=== PATIENT | female | born 1960 | race Caucasian/White ===

== ENCOUNTER 2016-12-25 11:27 | Inpatient (IN) | payer OTHER ==
[2016-12-25] MEDS ORDERED: MORPHINE SULFATE INJ 10 MG/ML VIAL IV ONE ×2 (11:47→14:09)
[2016-12-25] MEDS ORDERED: PROMETHAZINE HCL INJ 25 MG in SODIUM CHLORIDE 0.9% 50ML 50 ML IVPB ONE (11:47)
[2016-12-25] MEDS ORDERED: SODIUM CHLORIDE 0.9% 1000ML 1,000 ML IVS ONE ×2 (11:47→18:20)
[2016-12-25] MEDS ORDERED: PROMETHAZINE HCL INJ 25 MG/ML VIAL ONE (11:51)
[2016-12-25] MEDS ORDERED: SODIUM CHLORIDE 0.9% 50ML 50 ML ONE (11:52)
--- NOTE | 2016-12-25 12:30 | RAD ---
EXAM DESCRIPTION: Abdomen Series CLINICAL HISTORY: abd pain, n/v hx pancreatitis, 2 hrs COMPARISON: None. FINDINGS: AP supine and upright views of the abdomen show a nonspecific, nonobstructive bowel gas pattern with no evidence for free intraperitoneal air. Surgical clips from cholecystectomy are seen. No air-filled dilated loops of small bowel are seen. No significant air-fluid levels are identified. No obvious organomegaly is seen. No abnormal calcifications are seen in the expected location of the renal collecting systems. Single view of the chest shows cardiac silhouette and pulmonary vasculature to be within normal limits. Lungs are normally aerated and clear. Left hip arthroplasty changes are seen. IMPRESSION: Nonspecific abdominal series Electronically signed by: Tariq Soria MD 12/25/2016 12:29 PM CDT
[2016-12-25] MEDS ORDERED: ONDANSETRON ODT 8 MG TAB SL ONE (14:09)
[2016-12-25] MEDS ORDERED: ALUMINUM & MAGNESIUM HYDROXIDE 30 ML UD PO ONE (14:09)
--- NOTE | 2016-12-25 14:16 | ED.PDOC ---
History of Present Illness - General Chief Complaint: Abdominal Pain Stated Complaint: abdominal pain Time Seen by Provider: 12/25/16 11:34 Information Source: patient, family Exam Limitations: no limitations - History of Present Illness Initial Comments: The patient is a 56-year-old male presenting to the emergency room secondary to fairly abrupt onset abdominal pain with concurrent nausea and vomiting this morning approximately 3 hours prior to arrival. Patient reports the pain and nausea are just like her previous episodes of pancreatitis. She thinks she's had around 4 episodes in the past. She did drink heavily and smoke heavily in the past. She reports that she is doing neither now. No history of hypertriglyceridemia or calcium problems that she knows of. No fevers. No diarrhea. She was feeling fine before the onset. The patient is vomiting and an obvious pain upon my initial exam. No trauma recently. No syncope or near-syncope. No recent dietary changes or medication changes according to her.she does also apparently have a very significant history of gastritis and reflux issues. Abdominal Pain Onset Location: epigastric, periumbilical Pain Radiation: no radiation Quality: burning, cramping, waxing/waning Review of Systems - Review of Systems Constitutional: States: malaise EENTM: States: no symptoms reported Respiratory: States: no symptoms reported Cardiology: States: no symptoms reported Gastrointestinal/Abdominal: States: abdominal pain, nausea, vomiting. Denies: constipation, diarrhea Genitourinary: States: no symptoms reported Musculoskeletal: States: no symptoms reported Skin: States: no symptoms reported Neurological: States: anxiety Endocrine: States: no symptoms reported All other Systems: No Change from Baseline Past Medical History (General) - Patient Medical History Hx Seizures: No Hx Stroke: No Hx Dementia: No Hx Asthma: Yes Hx of COPD: Yes Hx Cardiac Disorders: Yes Hx Congestive Heart Failure: No Hx Pacemaker: No Hx Hypertension: Yes Hx Thyroid Disease: No Hx Diabetes: No Hx Gastroesophageal Reflux: No Hx Renal Disease: No Hx Cancer: No Hx of HIV: No Hx Hepatitis C: No Hx MRSA: No Surgical History: appendectomy, cholecystectomy, Hysterectomy, other - Vaccination History Hx Tetanus, Diphtheria Vaccination: No Hx Influenza Vaccination: Yes Hx Pneumococcal Vaccination: Yes - Social History Hx Tobacco Use: No Hx Chewing Tobacco Use: No Hx Alcohol Use: No Hx Substance Use: No Hx Substance Use Treatment: No Hx Depression: No Hx Physical Abuse: No Hx Emotional Abuse: No Hx Suspected Abuse: No - Activities of Daily Living Hospice Agency (if applicable):: None - Female History Patient is a Female of Child Bearing Age (10 -59 yrs old): No Patient : No Family Medical History - Family History Mother Family History: Unknown Living Status: Hx Family Hypertension: Yes Hx Cardiac Disease: Yes - [place] Hx Family Cancer: Yes - brain, lung Physical Exam - Physical Exam General Appearance: Alert, Obvious distress Eyes, Ears, Nose, Throat Exam: PERRL/EOMI, normal ENT inspection Neck: non-tender, full range of motion Respiratory: chest non-tender, lungs clear, normal breath sounds, no respiratory distress, no accessory muscle use Cardiovascular/Chest: normal peripheral pulses, regular rate, rhythm, no edema Peripheral Pulses: 2+ Gastrointestinal/Abdominal: soft, other - [id number] epigastric and periumbilical discomfort palpation. No definite rebound at this point. No definite palpable masses. 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 Given the patient's reported history of recurrent pancreatitis, the symptoms do appear to be consistent with that diagnosis at this time. The patient has really seemed a liter of IV fluids as well as some nausea and pain medications. She does appear to respond to these fairly well however once the medications wear off the symptoms do recur. The patient is being made nothing by mouth with the exception of ice chips. The patient has a normal amylase and lipase at this point in time however symptoms only started a few hours ago. admit for continuation of symptom control and further workup as deemed necessary by response to treatment. - Results/Orders Results/Orders: Laboratory Tests 12/25/16 12/25/16 12/25/16 11:40 11:40 11:40 WBC 7.2 RBC 4.71 Hgb 13.6 Hct 41.0 MCV 87.1 MCH 28.8 MCHC 33.1 RDW 13.2 Plt Count 227 MPV 8.7 Absolute Neuts (auto) 3.50 Absolute Lymphs (auto) 2.80 Absolute Monos (auto) 0.70 Absolute Eos (auto) 0.10 Absolute Basos (auto) 0.10 Neutrophils % 48.9 Lymphocytes % 38.3 Monocytes % 9.7 H Eosinophils % 1.6 Basophils % 1.5 PT 10.2 INR 0.900 PTT (SP) 25.4 Sodium 138 Potassium 3.4 L Chloride 107 Carbon Dioxide 23 Anion Gap 11.4 L BUN 17 Creatinine 0.83 BUN/Creatinine Ratio 20.5 H Random Glucose 118 H Serum Osmolality 278.3 Calcium 8.5 Magnesium 2.1 Total Bilirubin 0.6 AST 47 H ALT 30 Alkaline Phosphatase 64 Creatine Kinase 92 CK-MB (CK-2) 1.4 CK-MB (CK-2) % Not Reportable Troponin I < 0.02 B-Natriuretic Peptide 64.5 Serum Total Protein 7.3 Albumin 4.2 Globulin 3.1 Albumin/Globulin Ratio 1.4 Amylase 62 Lipase 30 Urine Color Urine Appearance Urine pH Ur Specific [place] Urine Protein Urine Glucose (UA) Urine Ketones Urine Blood Urine Nitrite Urine Bilirubin Urine Urobilinogen Ur Leukocyte Esterase Urine RBC Urine WBC Ur Epithelial Cells Urine Bacteria 12/25/16 13:50 WBC RBC Hgb Hct MCV MCH MCHC RDW Plt Count MPV Absolute Neuts (auto) Absolute Lymphs (auto) Absolute Monos (auto) Absolute Eos (auto) Absolute Basos (auto) Neutrophils % Lymphocytes % Monocytes % Eosinophils % Basophils % PT INR PTT (SP) Sodium Potassium Chloride Carbon Dioxide Anion Gap BUN Creatinine BUN/Creatinine Ratio Random Glucose Serum Osmolality Calcium Magnesium Total Bilirubin AST ALT Alkaline Phosphatase Creatine Kinase CK-MB (CK-2) CK-MB (CK-2) % Troponin I B-Natriuretic Peptide Serum Total Protein Albumin Globulin Albumin/Globulin Ratio Amylase Lipase Urine Color Yellow Urine Appearance Clear Urine pH 7.0 Ur Specific [place] 1.020 Urine Protein Negative Urine Glucose (UA) Negative Urine Ketones Negative Urine Blood Small H Urine Nitrite Negative Urine Bilirubin Negative Urine Urobilinogen 0.2 Ur Leukocyte Esterase Negative Urine RBC 3-5 H Urine WBC 0 Ur Epithelial Cells 0 Urine Bacteria 0 acute abdominal series shows no evidence of new definitive pathology. No free air. No evidence of obstruction. 

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
[2016-12-25] MEDS ORDERED: MORPHINE SULFATE INJ 10 MG/ML VIAL IV PRN (15:51)
[2016-12-25] MEDS ORDERED: SODIUM CHLORIDE 0.9% (FLUSH) 10 ML SYG IV PRN (15:51)
[2016-12-25] MEDS ORDERED: ONDANSETRON INJ 4 MG/2 ML VIAL IV PRN (15:51)
[2016-12-25] MEDS ORDERED: PANTOPRAZOLE INJECTION 40 MG in SODIUM CHLORIDE 0.9% 100ML 100 ML IVPB ONE (15:58)
[2016-12-25] MEDS ORDERED: IV SET AND CAP CHANGE INJ INJ SCH (16:00)
--- NOTE | 2016-12-25 16:57 | CT ---
PROCEDURE: Abdomen/Pelvis w/Contrast HISTORY: Acute abdominal pain Indication: Same as above Comparison: None . Technique: CT of the abdomen and pelvis was done with intravenous contrast. Images were obtained from the lung base to the level of the pubic symphysis in axial plane, followed by orthogonal sagittal and coronal reconstruction. Oral contrast was not given for the study. The patient was injected with contrast intravenously, without any documented immediate adverse reactions. This exam was performed according to our departmental dose-optimization program, which includes automated exposure control, adjustment of the mA and/or KV according to the patient's size and/or use of iterative reconstruction technique. FINDINGS: Images through the lung bases do not show any focal infiltrates or pleural effusions. The liver, pancreas, spleen and the bilateral adrenal glands appear unremarkable. The gallbladder is surgically absent. Postcholecystectomy prominence of the common duct and the intrahepatic biliary tree is noted The bilateral kidneys enhance with contrast in a normal fashion. The urinary bladder is unremarkable . The bilateral ureters and the bilateral periureteral soft tissues and fat planes are unremarkable. The small bowel appears unremarkable, without any evidence of small bowel obstruction or bowel wall thickening. There is no CT evidence of pericecal inflammatory change or ileocecal mesenteric adenitis. The appendix is not visualized The ileocecal junction appears unremarkable. There is mild diffuse thickening of the wall of the entire large bowel, which may be due to underlying diffuse colitis due to infectious or inflammatory etiology. There is no large bowel obstruction The splenic and portal veins are of normal caliber, without any filling defects. There is no pathological lymphadenopathy in the retroperitoneum or in the pelvic region. There is no evidence of free fluid or free air in the abdomen or the pelvic region. There is no clinically significant abdominal aortic aneurysm. There is no clinically significant inguinal or ventral hernia. The visualized lumbar spine shows mild degenerative change. There is ORIF in the left proximal femur and left hip joint . The paravertebral soft tissues are unremarkable. The remainder of the pelvic structures are unremarkable. IMPRESSION: There is mild diffuse thickening of the wall of the entire large bowel, which may be due to underlying diffuse colitis due to infectious or inflammatory etiology. There is no large bowel obstruction. Location of Interpretation: Teleradiology Electronically signed by: Bernardo Maria MD 12/25/2016 4:56 PM CDT Workstation: [id number]
[2016-12-25] MEDS ORDERED: SODIUM CHLORIDE 0.9% 1000ML 1,000 ML ONE (17:04)
--- NOTE | 2016-12-25 17:19 | RAD ---
EXAM DESCRIPTION: Chest,2 Views CLINICAL HISTORY: 56 years Female, LUQ pain COMPARISON: 29 May 2015 TECHNIQUE: PA/lateral FINDINGS: The chest is hyperexpanded. No focal infiltrate is seen. The heart is within range of normal. No pleural fluid is seen. Surgical clips are seen in the right upper quadrant. IMPRESSION: Hyperexpansion the chest is observed. I see no acute cardiopulmonary pathology. Electronically signed by: Archie Thompson MD 12/25/2016 5:18 PM CDT
[2016-12-25] MEDS ORDERED: PANTOPRAZOLE SODIUM IV 40 MG VIAL ONE (18:22)
[2016-12-25] MEDS ORDERED: metroNIDAZOLE IV PREMIX 500MG 100 ML IVPB ONE (18:22)
[2016-12-25] MEDS ORDERED: SODIUM CHLORIDE 0.9% 100ML 100 ML IVPB ONE (18:37)
[2016-12-25] MEDS: metroNIDAZOLE IV PREMIX 500MG 500 MG in PREMIX BAG 1 BAG IVPB SCH (19:04)
[2016-12-25] MEDS: KCL 20MEQ/0.45% NS 1,000 ML IVS PRN (20:01)
[2016-12-25] MEDS ORDERED: SODIUM CHLORIDE 0.9% (FLUSH) 10 ML SYG IV SCH (21:00)
[2016-12-26] MEDS ORDERED: metroNIDAZOLE IV PREMIX 500MG 100 ML IVPB ONE ×3 (01:09→17:53)
[2016-12-26] MEDS: metroNIDAZOLE IV PREMIX 500MG 500 MG in PREMIX BAG 1 BAG IVPB SCH ×3 (02:08→18:14)
[2016-12-26] MEDS: amLODIPine BESYLATE 5 MG TAB PO SCH (09:03)
[2016-12-26] MEDS: KCL 20MEQ/0.45% NS 1,000 ML IVS PRN ×2 (13:18→23:51)
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
[2016-12-27] MEDS ORDERED: metroNIDAZOLE IV PREMIX 500MG 100 ML IVPB ONE ×2 (02:48→07:45)
[2016-12-27] MEDS: metroNIDAZOLE IV PREMIX 500MG 500 MG in PREMIX BAG 1 BAG IVPB SCH ×2 (02:49→10:09)
[2016-12-27 08:08] VITALS: O2SAT 98
[2016-12-27] MEDS: amLODIPine BESYLATE 5 MG TAB PO SCH (09:06)
[2016-12-27 09:53] VITALS: BP 156/85; TEMP 97
[2016-12-27] MEDS ORDERED: ASPIRIN/ACETAMINOPHEN/CAFFEINE 1 EA TAB PO PRN (10:07)
[2016-12-27] MEDS ORDERED: ASPIRIN/ACETAMINOPHEN/CAFFEINE 1 EA TAB PO ONE (10:07)
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
== END 2016-12-27 15:15 | disposition home or self-care (01) | DRG 439 ==
LOC: ER 11:27 → MS 15:15
PROVIDERS: ADMIT Nurse Practitioner Family; ATTEND Emergency Medicine
PROC: BW21YZZ Computerized Tomography (CT Scan) of Abdomen and Pelvis using Other Contrast (ICD-10-PCS; principal; 2016-12-25)
DX: K85.90 Acute pancreatitis without necrosis or infection, unspecified (principal); A09 Infectious gastroenteritis and colitis, unspecified; R07.9 Chest pain, unspecified; R31.29 Other microscopic hematuria; E87.6 Hypokalemia; G89.29 Other chronic pain; K21.9 Gastro-esophageal reflux disease without esophagitis; M25.559 Pain in unspecified hip; I10 Essential (primary) hypertension; J44.9 Chronic obstructive pulmonary disease, unspecified; F17.210 Nicotine dependence, cigarettes, uncomplicated; Z96.642 Presence of left artificial hip joint; Z98.890 Other specified postprocedural states; Z87.828 Personal history of other (healed) physical injury and trauma; Z79.899 Other long term (current) drug therapy

== ENCOUNTER → 2017-01-21 | Outpatient (CLI) | payer OTHER | END | disposition home or self-care (01) | LOC: LAB.O 13:58 | PROVIDERS: ATTEND Nurse Practitioner Family | DX: K85.90 Acute pancreatitis without necrosis or infection, unspecified (principal) ==

== ENCOUNTER → 2017-02-06 | Outpatient (CLI) | payer OTHER ==
--- NOTE | 2017-02-06 17:13 | RAD ---
EXAM DESCRIPTION: Knee,Left Complete CLINICAL HISTORY: 56 years, Female, KNEE PAIN COMPARISON: None TECHNIQUE: Four views of the left knee FINDINGS: Bony structure of the knee is normally aligned with very little degenerative change but at least mild osteoporosis. No joint effusion or fracture or dislocation is seen. IMPRESSION: 1. Mild osteopenia, otherwise negative left knee. Electronically signed by: Messi Love MD 02/06/2017 5:11 PM CDT
--- NOTE | 2017-02-06 17:14 | RAD ---
EXAM DESCRIPTION: Pelvis CLINICAL HISTORY: 56 years Female, HIP PAIN COMPARISON: June 02, 2014 FINDINGS: A left total hip replacement that has been revised since 2013 examination is noted. The bones are modestly osteopenic. No fracture or deformity or other abnormalities are noted. The pubic and ischial rami are intact. IMPRESSION: Prior left hip replacement and revision. Otherwise negative pelvis with modest osteopenia Electronically signed by: Messi Love MD 02/06/2017 5:13 PM CDT
== END | disposition home or self-care (01) ==
LOC: RAD 07:45
PROVIDERS: ATTEND Orthopaedic Surgery
DX: M25.552 Pain in left hip (principal); M25.562 Pain in left knee

== ENCOUNTER 2018-02-22 10:32 | Emergency (ER) | payer BC, OTHER ==
[2018-02-22 10:49] VITALS: TEMP 97.5
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
[2018-02-22] MEDS ORDERED: SODIUM CHLORIDE 0.9% 500ML 500 ML IVS ONE (11:12)
[2018-02-22] MEDS ORDERED: KETOROLAC TROMETHAMINE INJ 30 MG/ML VIAL IV ONE (11:12)
[2018-02-22] MEDS ORDERED: ORPHENADRINE CITRATE 30 MG/ML AMP IV ONE (11:12)
[2018-02-22] MEDS ORDERED: HYDROcodone 10MG/APAP 325MG 1 EA TAB PO ONE (11:12)
--- NOTE | 2018-02-22 12:18 | RAD ---
EXAM: Lumbar Spine 3 Views CLINICAL INDICATION: 57-year-old female with pain. TECHNIQUE: Three views of the lumbar spine were obtained in AP, lateral, and spot projections. COMPARISON: None. FINDINGS: The lower lumbar spine vertebrae, L4 and L5 vertebral levels are not well visualized secondary to patient positioning. Alignment of the lumbar spine is within normal limits. There is no subluxation or fracture deformity. Morphology of the vertebral bodies and intervertebral disc spaces is compatible with mild multilevel degenerative change with small ventral vertebral body osteophytes. The remainder of the visualized bones are within normal limits. Total hip arthroplasty device on the LEFT incompletely visualized. IMPRESSION: No acute radiographic abnormality. If the patient's symptoms persist, further evaluation with MRI is recommended. Electronically signed by: Eryn Wiseman MD 02/22/2018 12:17 PM CDT
--- NOTE | 2018-02-22 14:01 | CT ---
CT abdomen and pelvis without contrast on 02/22/2018 CLINICAL INDICATION: Hematuria, left-sided back pain TECHNIQUE: Multiple axial images are obtained throughout the abdomen and pelvis without the administration of contrast. This exam was performed according to our departmental dose-optimization program, which includes automated exposure control, adjustment of the mA and/or kV according to patient size and/or use of iterative reconstruction technique. Total DLP is 283.08 mGy*cm. COMPARISON: 12/25/2016 FINDINGS: Abdomen: Mild emphysematous changes are noted in the lung bases. The lung bases are otherwise clear. The patient is status post cholecystectomy. There are couple of likely tiny hyperdense left renal cysts, the largest of these off the upper pole of the left kidney appears stable dating back to an exam from 05/28/2015. There are no renal or ureteral stones and no hydronephrosis. No definite cause of hematuria is noted. The unenhanced solid abdominal organs are otherwise unremarkable. Mild vascular calcifications are noted. There is no abdominal adenopathy. There is no free fluid or free air within the abdomen. The abdominal portion of the GI tract is unremarkable. Pelvis: There is no free fluid in the pelvis. The patient is status post a left total hip arthroplasty which produces artifact limiting some of the evaluation of the pelvis. The patient is status post hysterectomy. There is no pelvic adenopathy. The appendix is not visualized but no pericecal inflammatory changes are noted. Elbow portion of the GI tract is unremarkable. Degenerative changes are noted in the spine. IMPRESSION: No acute abnormality. Electronically signed by: Shiva Barragan 02/22/2018 2:00 PM CDT
[2018-02-22 14:21] VITALS: BP 148/81; O2SAT 97
== END 2018-02-22 14:24 | disposition home or self-care (01) ==
LOC: ER 10:32
DX: M54.5 Low back pain (principal); R31.29 Other microscopic hematuria; R11.2 Nausea with vomiting, unspecified; I51.9 Heart disease, unspecified; I10 Essential (primary) hypertension; K21.9 Gastro-esophageal reflux disease without esophagitis; Z87.19 Personal history of other diseases of the digestive system; Z90.49 Acquired absence of other specified parts of digestive tract; Z79.82 Long term (current) use of aspirin; Z79.899 Other long term (current) drug therapy; Z72.0 Tobacco use
CPT/HCPCS: 36415; 72100; 74176; 80048; 80076; 81001; 82550; 82553; 83605; 84484; 85025; 85610; 85651; 85730; J1885; J2360; J7040

== ENCOUNTER → 2019-01-07 | Outpatient (CLI) | payer BC ==
--- NOTE | 2019-01-08 08:31 | CT ---
EXAM DESCRIPTION: Lung Screen Low Dose CLINICAL HISTORY: 58 years Female, Tobacco use COMPARISON: CT abdomen and pelvis 02/22/2018. CT chest 08/15/2017. TECHNIQUE: CT images through the chest without IV contrast. Multiplanar reformations were provided. This exam was performed according to our departmental dose-optimization program, which includes automated exposure control, adjustment of the mA and/or kV according to patient size and/or use of iterative reconstruction technique. CT CHEST FINDINGS: Heart and mediastinum: Heart is normal size. Minimal pericardial effusion anteriorly. Esophagus is unremarkable. Mild aortic atherosclerosis. No mediastinal adenopathy. Evaluation for hilar lymphadenopathy limited without intravenous contrast. Thyroid Gland: Normal. Lungs: Biapical pleural thickening and mild right greater than left apical fibrosis. Moderate emphysematous changes. Unchanged 5 mm ovoid solid nodule along the right major fissure likely representing an intrafissural lymph node. Unchanged 4 mm solid ovoid nodule in the posterior right lower lobe along the right hemidiaphragm. Unchanged millimetric pleural adjacent solid pulmonary nodules in the posterior lateral left lower lobe. Unchanged pleural adjacent curvilinear density measuring 5 mm in the lateral left lower lobe which may represent focal scarring or atelectasis. No new pulmonary nodule. Airways: No filling defects or bronchiectasis. Pleura: No effusion or pneumothorax. Subphrenic Structures: The gallbladder surgically absent. There is a stable 12 mm hyperdense round lesion extending off the superior pole of the left kidney with average Hounsfield unit of 87. Upper abdominal aortic atherosclerosis Musculoskeletal and Soft Tissues: Within normal limits for age. IMPRESSION: 1. No acute abnormality of the chest. 2. Emphysema. 3. Stable pulmonary nodules as above, unchanged from 08/15/2015. Recommend follow-up per the lung RADS guidelines below. 4. Unchanged likely proteinaceous or hemorrhagic left renal cyst. Category 2 - Nodules with a very low likelihood (less than 1%) of becoming a clinically active cancer due to size or lack of growth. Nodules: Solid or part solid nodule(s) less than 6mm, new solid nodule less than 4mm. Ground glass nodule(s) less than 20mm or unchanged or slow growing ground glass nodule 20mm or greater. Cat 3 or 4 nodule unchanged for 3 or more months. Follow-up: Continue annual screening with a Low Dose Chest CT in 12 months for re-evaluation. Electronically signed by: Bk Hatfield MD 01/08/2019 8:28 AM CDT
== END ==
LOC: CT 15:28
PROVIDERS: ATTEND General Practice
DX: Z87.891 Personal history of nicotine dependence (principal); J43.9 Emphysema, unspecified; R91.8 Other nonspecific abnormal finding of lung field; N28.1 Cyst of kidney, acquired; Z72.0 Tobacco use

== ENCOUNTER → 2019-02-15 | Outpatient (CLI) | payer BC ==
--- NOTE | 2019-02-15 20:27 | MAM ---
EXAM DESCRIPTION: 3D Screening BILATERAL : Digital Mammography. CLINICAL HISTORY: 58 years Female SCREEN . No complaints and no personal history of breast cancer. Mother with breast cancer. Childbirth. Postmenopausal 25+ years. No HRT. Bilateral benign breast biopsies. Lifetime risk of developing breast cancer (Tyrer-Cuzick model)(%): 20.5. COMPARISON: Baseline study at this facility.. No prior reports available. TECHNIQUE: Bilateral CC and MLO projection full-field images, digital tomosynthesis mammographic technique. Bilateral digital 2-D full-field MLO images. CAD not available for tomosynthesis or 2-D images. FINDINGS: The breast parenchymal density pattern is: Heterogeneously dense breast tissue, which may obscure small masses. No skin thickening or nipple retraction. Focal asymmetry in the middle third of the right breast at the 9:00 position approximately 5 cm from the nipple. 2 small groups of calcifications in the middle third and anterior third of the breast. Bilateral solitary microcalcifications. No new focal, stellate mass or density, focal asymmetry , and no suspicious microcalcifications left breast. IMPRESSION: BI-RADS CATEGORY: 0 - INCOMPLETE- Need additional imaging evaluation. FOLLOW-UP: Recall for additional imaging: Right breast LM full-field tomosynthesis. Right breast CC spot compression tomosynthesis. Right breast LM/CC spot magnification. Targeted right breast ultrasound.. Written communication concerning the IMPRESSION and Follow-up, will be mailed to the patient and referring health care provider. Electronically signed by: Shashi Day MD 02/15/2019 8:25 PM CDT
== END ==
LOC: MAMMO 10:00
PROVIDERS: ATTEND General Practice
DX: Z12.31 Encounter for screening mammogram for malignant neoplasm of breast (principal)

== ENCOUNTER 2019-04-08 11:38 | Emergency (ER) | payer BC ==
[2019-04-08] MEDS ORDERED: ONDANSETRON INJ 4 MG/2 ML VIAL IV ONE (11:51)
[2019-04-08] MEDS ORDERED: MORPHINE SULFATE INJ 10 MG/ML VIAL IV ONE (11:51)
[2019-04-08 11:52] VITALS: TEMP 99.2
--- NOTE | 2019-04-08 11:56 | ED.PDOC ---
History of Present Illness - General Chief Complaint: GI Problem Stated Complaint: left hip pain Time Seen by Provider: 04/08/19 11:50 - History of Present Illness Initial Comments: this is a 58 year female, smoker, patient present with left hip pain since yesterday, patient was at work when she started having pain, on her left hip and then migrating towards her abdomen, no trauma, today the pain was unbearable, no nausea no vomiting and no diarrhea. when i started the evaluation it was clear to me that the pain was not in the hip but that it was actually on the abdomen, that her hips hurt wheh she walk but the pain actually starts on her abdomen patient has had multiple surgeries incluiding hysterectomy, gall bladder resection and appendectomy. patient pain in her abdomen is worse when she moves Review of Systems - Review of Systems Constitutional: Denies: chills, diaphoresis, fever, malaise, weakness EENTM: Denies: eye pain, blurred vision, tearing, double vision, ear pain, ear discharge, nose pain, nose congestion, throat pain, throat swelling, mouth pain Respiratory: Denies: cough, orthopnea, short of breath, stridor Cardiology: Denies: chest pain, edema, palpitations, syncope Gastrointestinal/Abdominal: States: abdominal pain. Denies: constipation, diarrhea, nausea, vomiting Genitourinary: Denies: discharge, dysuria, frequency, hematuria, pain Musculoskeletal: Denies: back pain, gout, joint pain, joint swelling, muscle pain, muscle stiffness, neck pain Skin: Denies: change in color, change in hair/nails, dryness, lesions, lumps, rash Neurological: Denies: anxiety, depressed, emotional problems, headache, numbness, paresthesia, pre-existing deficit, seizure, tingling, tremors, weakness Endocrine: Denies: excessive sweating, flushing, intolerance to cold, intolerance to heat, increased hunger, increased thirst, increased urine, unexplained weight gain, unexplained weight loss Hematologic/Lymphatic: Denies: anemia, blood clots, easy bleeding, easy bruising, swollen glands All other Systems: Reviewed and Negative Past Medical History (General) - Patient Medical History Hx Seizures: No Hx Stroke: No Hx Dementia: No Hx Asthma: No Hx of COPD: No Hx Cardiac Disorders: Yes Hx Congestive Heart Failure: No Hx Pacemaker: No Hx Hypertension: Yes Hx Thyroid Disease: No Hx Diabetes: No Hx Gastroesophageal Reflux: Yes Hx Renal Disease: No Hx Cancer: No Hx of HIV: No Hx Hepatitis C: No Hx MRSA: No Surgical History: appendectomy, cholecystectomy, Hysterectomy - Vaccination History Hx Tetanus, Diphtheria Vaccination: No Hx Influenza Vaccination: Yes Hx Pneumococcal Vaccination: Yes - Social History Hx Tobacco Use: Yes - occasionally Hx Chewing Tobacco Use: No Hx Alcohol Use: No Hx Substance Use: No Hx Substance Use Treatment: No Hx Depression: No Hx Physical Abuse: No Hx Emotional Abuse: No Hx Suspected Abuse: No - Female History Patient : No Family Medical History - Family History Mother Family History: Unknown Living Status: Hx Family Asthma: Yes - sister Hx Family Hypertension: Yes Hx Cardiac Disease: Yes - [place] Hx Family Cancer: Yes - brain, lung Hx Family;Other: Hemophilia -brother Physical Exam - Physical Exam General Appearance: Alert, Well Developed, Well Groomed, Well Hydrated Eyes, Ears, Nose, Throat Exam: PERRL/EOMI, normal ENT inspection Neck: non-tender, full range of motion, supple Respiratory: chest non-tender, lungs clear, normal breath sounds, no respiratory distress Cardiovascular/Chest: normal peripheral pulses, regular rate, rhythm, no edema, no gallop Gastrointestinal/Abdominal: other - diffuse abdominal tenderness, no actue adomen Extremity: normal range of motion, non-tender, normal inspection, no pedal edema, no calf tenderness, normal capillary refill, other - i was able to move all her extremities and no pain, no redness and no swelling noted Progress - Progress Progress: 04/08/19 14:12 this is a patient that initially presented with left hip pain but on initial evaluation pain was mostly in her abdomen, patient did mention that she has had multiple abdominal surgeries and had a very hard stool this morning. im going to get a ct and cbc, cmp, lipase and urines im concer for small bowel obstruction but also im worried about perforation since patient pain since to be worse with movement patient labs were essentially negative and ct did show constipation but acute findings patient will be discharge home with bentyl, tramadol (possible hip bursitis) and patient has dulcolax at home and instructed her to add more fiber and liquid to diet return to the er if fever,chills, nausea, vomiting, diarrhea, unable to hold any fluids down, bloody stool severe back pain, sever abdominal pain, unwanted weight loss, painful urination and/or bloody urine Departure - Departure Clinical Impression: Abdominal pain Qualifiers: Abdominal location: generalized Qualified Code(s): R10.84 - Generalized abdominal pain Constipation Qualifiers: Constipation type: other constipation type Qualified Code(s): K59.09 - Other constipation Disposition: Discharge to Home or Self Care Condition: Fair Departure Forms: ED Discharge - Pt. Copy, Patient Portal Self Enrollment Instructions: DI for Abdominal Pain-Adult, DI for Constipation Referrals: Darwin Grier MD [Primary Care Provider] - 1-2 Weeks Prescriptions: Dicyclomine HCl [Bentyl] 20 mg PO Q6HRS 6 Days #24 tab traMADol 37.5MG/APAP 325MG [Ultracet] 50 mg PO .Q4H 4 Days #24 tab Home Medications: Ambulatory Orders Pantoprazole Tablet [Protonix] 40 mg PO PRN 12/25/16 Aspirin-Caffeine [Diane [employer] Body 500-32.5 mg] 1 tab PO Q6HR PRN 02/22/18 Dicyclomine HCl [Bentyl] 20 mg PO Q6HRS 6 Days #24 tab 04/08/19 traMADol 37.5MG/APAP 325MG [Ultracet] 50 mg PO .Q4H 4 Days #24 tab 04/08/19 Additional Instructions: return to the er if fever,chills, nausea, vomiting, diarrhea, unable to hold any fluids down, bloody stool severe back pain, sever abdominal pain, unwanted weight loss, painful urination and/or bloody urine
--- NOTE | 2019-04-08 13:23 | CT ---
EXAM DESCRIPTION: Abdomen/Pelvis w/Contrast CLINICAL HISTORY: 58 years Female, diffuse abdominal pain COMPARISON: CT abdomen and pelvis dated 02/22/2018. TECHNIQUE: Contiguous 3 mm axial images were obtained from the lung bases to the level of the proximal femora after the administration of intravenous and oral contrast. Sagittal and coronal reconstructions were reviewed. FINDINGS: THORAX: 4 mm pleural-based nodule is noted along the right major fissure. The imaged lower thorax otherwise appears normal. LIVER: Diffuse intrahepatic and extrahepatic biliary ductal dilatation is felt to be secondary to cholecystectomy. No focal masses are identified. GALLBLADDER: Absent. PANCREAS: Appears normal with no cystic or solid lesions. SPLEEN: Normal ADRENAL GLANDS: Normal with no nodules or masses. KIDNEYS: Both kidneys enhance symmetrically with no hydronephrosis or nephrolithiasis or perinephric fluid collections. No focal masses are identified. The visualized ureters appear grossly unremarkable. STOMACH: The stomach is not well-distended limiting detailed evaluation. SMALL BOWEL: The small bowel loops demonstrate variable degrees of distention with no abnormal dilatation or other signs to suggest bowel obstruction. LARGE BOWEL: Moderate to large amount of fecal material is noted throughout the colon, consistent with constipation. Few diverticuli are identified. The descending colon is not well-distended limiting evaluation. The appendix is not definitively visualized. No evidence of free intraperitoneal air or fluid. RETROPERITONEUM: The abdominal aorta is nonaneurysmal with mild atherosclerosis. The inferior vena cava is normal in size and caliber. No abnormally enlarged retroperitoneal lymph nodes are identified. URINARY BLADDER: Not well distended limiting evaluation. The uterus and ovaries are not visualized and are probably surgically absent. ADDITIONAL FINDINGS: None. BONES: Mild degenerative changes are identified in the visualized bones. Intact left total hip arthroplasty. IMPRESSION: 1. Colonic diverticulosis. Constipation. 2. No acute intra-abdominal or intrapelvic process. 3. 4 mm pleural-based nodule is again noted along the right major fissure. Attention to this nodule is recommended on low-dose lung screening study. This exam was performed according to our departmental dose-optimization program, which includes automated exposure control, adjustment of the mA and/or kV according to patient size and/or use of iterative reconstruction technique. Electronically signed by: Cecilia Fernando MD 04/08/2019 1:22 PM CDT
[2019-04-08 14:35] VITALS: BP 142/86; O2SAT 98
== END 2019-04-08 14:39 | disposition home or self-care (01) ==
LOC: ER 11:38
DX: R10.84 Generalized abdominal pain (principal); K59.09 Other constipation; M25.552 Pain in left hip; F17.200 Nicotine dependence, unspecified, uncomplicated; I51.9 Heart disease, unspecified; I10 Essential (primary) hypertension; K21.9 Gastro-esophageal reflux disease without esophagitis; Z90.49 Acquired absence of other specified parts of digestive tract; Z90.710 Acquired absence of both cervix and uterus
CPT/HCPCS: 74177; 80053; 81001; 83690; 85025; J2270; J2405

== ENCOUNTER → 2019-08-11 | Outpatient (CLI) | payer BC ==
--- NOTE | 2019-08-11 16:56 | US ---
EXAM DESCRIPTION: 3D Diagnostic, Bilateral (accession [id number]), Breast,Right (accession [id number]): Ultrasound CLINICAL HISTORY: 59 yearsFemaleINCONCLUSIVE MAMMOGRAM focal asymmetry and microcalcifications right breast. Lifetime risk of developing breast cancer (Tyrer-Cuzick model)(%): 20.5. COMPARISON: Bilateral screening digital breast tomosynthesis January 2019 TECHNIQUE: Bilateral LM projection full-field images, digital tomosynthesis technique. Bilateral 2-D digital full-field images: LM and CC projection. Spot magnification anterior and mid third of the right breast LM and CC projections. CAD available for 2-D images.. Transcutaneous scanning of the right breast utilizing rollins-scale and Doppler modes. Scanning performed by the lace weaver and Dr. Day. FINDINGS: The breast parenchymal density pattern is: Heterogeneously dense breast tissue, which may obscure small masses. No skin thickening or nipple retraction solitary and grouped microcalcifications are noted which are benign type. Upper medial skin mole marker. Focal asymmetry in the right breast is less distinct. No new focal, stellate mass or density, , and no suspicious microcalcifications right breast since the screening study Ultrasound: scanning of the upper outer quadrant right breast. Anechoic versus hypoechoic circumscribed objects with wider than tall orientation and posterior acoustic enhancement. Nonvascular. These could represent complicated cyst or lymph nodes. IMPRESSION: Benign exam. BIRAD CATEGORY: 2 BENIGN FINDINGS. RECOMMENDATIONS: FOLLOW UP: Routine digital bilateral mammographic screening, one year interval from January 2019.. Because of the patient's elevated risk for breast cancer (20.5%), consider bilateral breast MRI without and with gadolinium IV contrast. Please see below*. Written communication explaining the IMPRESSION and follow-up, will be mailed to the patient and referring health care provider. The FINDINGS and the FOLLOW-UP plan were reviewed in person with the patient after the examination. *Breast MRI is recommended for women with an approximately 20-25% or greater lifetime risk of breast cancer, including women with a strong family history of breast or ovarian cancer and women who have been treated for Hodgkin's disease. According to the [employer], yearly mammograms are recommended starting at age 40 and continuing as long as a woman is in good health. Any breast change noted on a breast self-exam should be reported promptly to the patient's healthcare provider. A negative mammographic report should not delay tissue diagnosis in patients with significant clinical history or physical findings. Extremely dense breast tissue limits the sensitivity of digital mammography. Electronically signed by: Shashi Day MD 08/11/2019 4:54 PM [facility]
== END ==
LOC: US 08:01
PROVIDERS: ATTEND Family Medicine
DX: R92.2 Inconclusive mammogram (principal)
CPT/HCPCS: 76641; 77066; G0279

== ENCOUNTER → 2020-05-10 | Outpatient (CLI) | payer BC | LOC: GMAJ 16:46 | PROVIDERS: ATTEND Family Medicine | DX: R10.84 Generalized abdominal pain (principal) ==

== ENCOUNTER 2020-06-12 17:37 | Emergency (ER) | payer BC ==
--- NOTE | 2020-06-12 17:49 | ED.PDOC ---
History of Present Illness - General Time Seen by Provider: 06/12/20 17:46 Source: patient, RN notes reviewed, Vital Signs reviewed Additional Information: Female, with no medical problems presents to the ER because of pain right over the MCP. Of the left arm, patient was coming from work, she tripped and she hit her head with a dresser, patient did not hit her head No medical problems, does not feel any stress, Denies fever chills or cough - History of Present Illness Timing/Duration: constant Improving Factors: nothing Worsening Factors: nothing Associated Symptoms: denies symptoms Allergies/Adverse Reactions: Allergies NO KNOWN ALLERGY Allergy (Verified 06/12/20 18:02) Home Medications: Ambulatory Orders Pantoprazole Tablet [Protonix] 40 mg PO PRN 12/25/16 Aspirin-Caffeine [Diane Back & Body 500-32.5 mg] 1 tab PO Q6HR PRN 02/22/18 Dicyclomine HCl [Bentyl] 20 mg PO Q6HRS 6 Days #24 tab 04/08/19 traMADol 37.5MG/APAP 325MG [Ultracet] 50 mg PO .Q4H 4 Days #24 tab 04/08/19 Acetaminophen W/ Codeine [Tylenol W/ CODEINE #3] 1 ea PO Q6HRS #20 ea 06/12/20 Review of Systems - Review of Systems Constitutional: States: no symptoms reported EENTM: States: no symptoms reported Respiratory: States: no symptoms reported Cardiology: States: no symptoms reported Gastrointestinal/Abdominal: States: no symptoms reported Genitourinary: States: no symptoms reported Musculoskeletal: States: no symptoms reported Skin: States: no symptoms reported Neurological: States: no symptoms reported Endocrine: States: no symptoms reported Hematologic/Lymphatic: States: no symptoms reported Past Medical History (General) - Patient Medical History Hx Seizures: No Hx Stroke: No Hx Dementia: No Hx Asthma: No Hx of COPD: No Hx Cardiac Disorders: Yes Hx Congestive Heart Failure: No Hx Pacemaker: No Hx Hypertension: Yes Hx Thyroid Disease: No Hx Diabetes: No Hx Gastroesophageal Reflux: Yes Hx Renal Disease: No Hx Cancer: No Hx of HIV: No Hx Hepatitis C: No Hx MRSA: No - Vaccination History Hx Tetanus, Diphtheria Vaccination: No Hx Influenza Vaccination: Yes Hx Pneumococcal Vaccination: Yes - Social History Hx Tobacco Use: Yes - occasionally Hx Chewing Tobacco Use: No Hx Alcohol Use: No Hx Substance Use: No Hx Substance Use Treatment: No Hx Depression: No Hx Physical Abuse: No Hx Emotional Abuse: No Hx Suspected Abuse: No - Female History Patient : No Family Medical History - Family History Mother Family History: Unknown Living Status: Hx Family Asthma: Yes - sister Hx Family Hypertension: Yes Hx Cardiac Disease: Yes - [place] Hx Family Cancer: Yes - brain, lung Hx Family;Other: Hemophilia -brother Physical Exam - Physical Exam General Appearance: Well Developed, Well Groomed, Well Hydrated, Well Nourished Eye Exam: bilateral normal Ears, Nose, Throat: hearing grossly normal, normal ENT inspection, normal pharynx Neck: non-tender, full range of motion, supple, normal inspection Respiratory: chest non-tender, lungs clear, normal breath sounds, no respiratory distress, no accessory muscle use Cardiovascular/Chest: normal peripheral pulses, regular rate, rhythm, no edema, no gallop, no JVD, no murmur Peripheral Pulses: radial,right: 2+, radial,left: 2+ Gastrointestinal/Abdominal: normal bowel sounds, non tender, soft, no organomegaly, no pulsatile mass Extremity: normal range of motion, swelling, other - sweelling at te dorsum of the 5th metacarpophalangeal joint Neurologic: zone manager II-XII nml as tested, no motor/sensory deficits, alert, normal mood/affect Progress - Progress Progress: Patient presents with trauma to the left hand patient tripped at home hitting a drawer, hitting her between the webspace of the fourth and fifth digit, there is some redness and swelling noted in patient metacarpophalangeal joints at the fifth X-ray did show evidence of a nondisplaced MCP joint fracture, I will obtain this with fracture will require surgery but will be immobilized with a, bladder, and patient will be referred to the pain surgeon for further follow-up, instructions were given to keep this from the elevated for pain and swelling and numbness or excruciating pain in the area after the splint 06/12/20 18:07 Procedures - Splinting Left 5th Digit Foot Hand-Made Type: orthoglass Splint: ulnar Pre-Proc Neuro Vasc Exam: normal Post-Proc Neuro Vasc Exam: normal Departure - Departure Clinical Impression: Boxer's metacarpal fracture, neck, closed Qualifiers: Encounter type: initial encounter Qualified Code(s): S62.339A - Displaced fracture of neck of unspecified metacarpal bone, initial encounter for closed fracture Disposition: Discharge to Home or Self Care Condition: Fair Instructions: Boxer's Fracture (DC) Referrals: Cosme Willis MD [Primary Care Provider] - 1-2 Weeks Harlan Montejo MD [Active Staff] - 1-2 Weeks Prescriptions: Acetaminophen W/ Codeine [Tylenol W/ CODEINE #3] 1 ea PO Q6HRS #20 ea Home Medications: Ambulatory Orders Pantoprazole Tablet [Protonix] 40 mg PO PRN 12/25/16 Aspirin-Caffeine [Diane Back & Body 500-32.5 mg] 1 tab PO Q6HR PRN 02/22/18 Dicyclomine HCl [Bentyl] 20 mg PO Q6HRS 6 Days #24 tab 04/08/19 traMADol 37.5MG/APAP 325MG [Ultracet] 50 mg PO .Q4H 4 Days #24 tab 04/08/19 Acetaminophen W/ Codeine [Tylenol W/ CODEINE #3] 1 ea PO Q6HRS #20 ea 06/12/20
[2020-06-12 18:01] VITALS: TEMP 97.2
--- NOTE | 2020-06-12 18:20 | RAD ---
EXAM: XR Left Hand Complete, 3 Views CLINICAL HISTORY: fall TECHNIQUE: Frontal, lateral and oblique views of the left hand. COMPARISON: No relevant prior studies available. FINDINGS: Bones/joints: No abnormality noted. No acute fracture. No dislocation. Soft tissues: No abnormality noted. No radiopaque foreign body. IMPRESSION: No abnormality noted. Electronically signed by: Judy Hemphill MD 06/12/2020 6:18 PM [facility]
[2020-06-12 18:35] VITALS: BP 151/117; O2SAT 96
== END 2020-06-12 18:30 | disposition home or self-care (01) ==
LOC: ER 17:37
DX: S62.339A Displaced fracture of neck of unspecified metacarpal bone, initial encounter for closed fracture (principal); I51.9 Heart disease, unspecified; K21.9 Gastro-esophageal reflux disease without esophagitis; I10 Essential (primary) hypertension; Z72.0 Tobacco use; Z79.82 Long term (current) use of aspirin; Z79.899 Other long term (current) drug therapy; W01.190A Fall on same level from slipping, tripping and stumbling with subsequent striking against furniture, initial encounter; Y93.89 Activity, other specified; Y92.89 Other specified places as the place of occurrence of the external cause